=== PATIENT | male | born 1995 | race American Indian/Alaskan Native ===

== ENCOUNTER 2018-11-14 15:44 | Emergency (ER) | payer OTHER ==
[2018-11-14 16:19] LABS: Basophils % (Auto) 0.3 % (0.0-1.8); Eosinophils % (Auto) 0.1 % (0.0-4.3); Hematocrit 38.6 % (35.5-45.6); Hemoglobin 11.9 gm/dl (11.8-15.2); Lymphocytes # (Auto) 0.9 K/mm3 (1.2-5.4); Lymphocytes % (Auto) 9.3 % (13.4-35.0); Mean Corpuscular HGB Conc 31 % (32-34); Mean Corpuscular Volume 75 fl (84-94); Monocytes # (Auto) 0.5 K/mm3 (0.0-0.8); Monocytes % (Auto) 4.8 % (0.0-7.3); Platelet Count 267 K/mm3 (140-440); Red Blood Count 5.14 M/mm3 (3.65-5.03); Red Cell Distribution Width 14.4 % (13.2-15.2)
[2018-11-14 16:32] LABS: Blood Urea Nitrogen 8 mg/dL (9-20)
[2018-11-14] MEDS ORDERED: NACL 0.9% 1000 ML 1,000 ML IV ONE (16:32)
[2018-11-14 16:33] LABS: BUN/Creatinine Ratio 7; Calcium 9.2 mg/dL (8.4-10.2); Hemolysis Index 18
--- NOTE | 2018-11-14 16:37 | Emergency Department Report ---
HPI - General Chief Complaint: Weakness Time Seen by Provider: 11/14/18 16:00 - HPI HPI: 23-year-old -[place]ian male presents to the emergency department via EMS with a complaint of some dizziness, generalized weakness, and near syncope. 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 He says that he finished the obstacle course but afterwards started feeling very weak and nauseated. He says that he collapsed but did not pass out. He was found to have an initial heart rate of 140. He was given a liter of fluid and Zofran 4 mg in route. Patient says he currently feels much better. He denies any past medical history. ED Past Medical Hx - Past Medical History Previous Medical History?: No - Surgical History Past Surgical History?: No - Social History Smoking Status: Never Smoker Substance Use Type: None - Medications Home Medications: Home Medications Medication Instructions Recorded Confirmed Last Taken Type Nitrofurantoin Monohyd/M-Cryst 100 mg PO BID #12 capsule 11/14/18 Unknown Rx [Macrobid 100 mg Capsule] ED Review of Systems ROS: Stated complaint: SYNCOPE Other details as noted in HPI Comment: All other systems reviewed and negative Constitutional: weakness. denies: fever Eyes: denies: eye pain, vision change ENT: denies: ear pain, throat pain Respiratory: denies: cough, shortness of breath Cardiovascular: denies: chest pain, palpitations Gastrointestinal: denies: abdominal pain, vomiting Genitourinary: denies: dysuria, frequency Musculoskeletal: denies: back pain, arthralgia Skin: denies: rash, lesions Neurological: other (dizziness). denies: headache, numbness Physical Exam - Physical Exam Vital Signs: Vital Signs 11/14/18 15:53 Temperature 98.7 F Pulse Rate 138 H Respiratory 18 Rate Blood Pressure 133/58 O2 Sat by Pulse 95 Oximetry Physical Exam: GENERAL: The patient is well-developed well-nourished. HEENT: Normocephalic. Atraumatic. Patient has moist mucous membranes. EYES: Extraocular motions are intact. Pupils are equal and reactive to light bilaterally. NECK: Supple. Trachea is midline. CHEST/LUNGS: Clear to auscultation. There is no respiratory distress noted. HEART/CARDIOVASCULAR: Regular. There is moderate tachycardia. There is no obvious murmur. ABDOMEN: Abdomen is soft, nontender. Patient has normal bowel sounds. There is no abdominal distention. SKIN: Skin is warm and dry. NEURO: The patient is awake, alert, and oriented. The patient is cooperative. The patient has no focal neurologic deficits. The patient has normal speech. CN II - XII grossly intact. MUSCULOSKELETAL: There is no tenderness or deformity. There is no limitation range of motion. There is no evidence of acute injury. ED Course Vital Signs 11/14/18 15:53 Temperature 98.7 F Pulse Rate 138 H Respiratory 18 Rate Blood Pressure 133/58 O2 Sat by Pulse 95 Oximetry ED Medical Decision Making - Lab Data Result diagrams: 11/14/18 16:01 11/14/18 16:01 - EKG Data -: EKG Interpreted by Me EKG shows normal: sinus rhythm, axis, intervals, QRS complexes, ST-T waves Rate: tachycardia (114 bpm) - EKG Data When compared to previous EKG there are: previous EKG unavailable Interpretation: other (sinus tachycardia. 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 This was the first day of the patient's training. Since being in the emergency department he has been awake and alert and in no acute distress. He presents with some tachycardia with heart rate of about 135 bpm but otherwise he has no complaints at this time. He denies any chest pain, palpitations, back pain or shortness of breath. EKG shows some sinus tachycardia. No signs of any ST elevation [place] or dysrhythmia. Labs were unremarkable including a CBC, BMP and thyroid level. Urinalysis showed a small urinary tract infection with 16 white blood cells and small leukocyte esterase and the patient will be treated with some Macrobid. He was reevaluated multiple times overnight hours and has remained stable and his heart rate is coming down to a more reasonable level. Patient denies any illicit drug use. He denies any recent travel, recent surgery or immobility. He appears low suspicion for a pulmonary embolism as the source of his tachycardia or previous symptoms. He has been given referrals for primary care for follow-up and he has been instructed to return to the emergency department with any return or worsening of his symptoms, any acute distress. - Differential Diagnosis dysrhythmia, dehydration, substance abuse, heat exhaustion Critical Care Time: No Critical care attestation.: If time is entered above; I have spent that time in minutes in the direct care of this critically ill patient, excluding procedure time. ED Disposition Clinical Impression: Near syncope, Dehydration UTI (urinary tract infection) Qualifiers: Urinary tract infection type: acute cystitis Hematuria presence: without he maturia Qualified Code(s): N30.00 - Acute cystitis without hematuria Disposition: TO HOME OR SELFCARE Is pt being admited?: No Condition: Stable Instructions: Dehydration (ED), Urinary Tract Infection in Men (ED), Near Syncope (ED) Additional Instructions: Please follow up with a primary care physician in the next few days. Return to the emergency Department with any worsening of her symptoms or any acute distress. Prescriptions: Nitrofurantoin Monohyd/M-Cryst [Macrobid 100 mg Capsule] 100 mg PO BID #12 capsu le Referrals: PRIMARY CAREMD [Primary Care Provider] - 3-5 Days TERESA FALK MD [Staff Physician] - 3-5 Days [facility] [Outside] - 3-5 Days Time of Disposition: 17:46
[2018-11-14 16:59] LABS: Bilirubin,Urine NEG (Negative); Blood,Urine NEG (Negative); Color,Urine Yellow (Yellow); Mucus,Urine 2+ /HPF; Urobilinogen,Urine < 2.0 mg/dL (<2.0)
[2018-11-14] MEDS ORDERED: MACROBID PO ONE (17:01)
[2018-11-14 17:34] VITALS: BP 115/73
== END 2018-11-14 18:00 | disposition home or self-care (01) ==
LOC: ED 15:44
DX: E86.0 Dehydration (principal); R55 Syncope and collapse; N30.00 Acute cystitis without hematuria; Z88.0 Allergy status to penicillin
CPT/HCPCS: 36415; 80048; 81001; 84443; 85025; 93005; 93010; 96360; 99284; J7030